=== PATIENT | male | born 1960 | race Caucasian/White ===

== ENCOUNTER 2018-08-03 02:17 | Outpatient (CLI) | payer MEDICARE, OTHER, SELFPAY ==
[2018-08-03 11:22] LABS: ALT 34 U/L (12-78); AST 22 U/L (15-37); Albumin 3.7 g/dL (3.4-5.0); Alkaline Phosphatase 78 U/L (46-116); Anion Gap 7.6 mmol/L (3-11); BUN 17 mg/dL (7-18); Bilirubin, Total 0.3 mg/dL (0.2-1.0); CO2 29.4 mmol/L (21.0-32.0); CREATININE 0.93 mg/dL (0.70-1.30); Calcium 9.4 mg/dL (8.5-10.1); Chloride 104 mmol/L (98-107); Cholesterol 142 mg/dL (50-200); Glucose 89 mg/dL (70-100); HDL Cholesterol 31 mg/dL (40-60); LDL CHOLESTEROL 76 mg/dL (<100); Potassium 4.8 mmol/L (3.5-5.1); Sodium 141 mmol/L (136-145); TSH (W/Ref FT4) 2.62 uIU/mL (0.358-3.74); Total Protein 6.6 g/dL (6.4-8.2); Triglyceride 142 mg/dL (30-150)
[2018-08-05 07:18] LABS: Vitamin D 25 Total 29.6 ng/ml (30-100)
== END 2018-08-03 02:37 ==
PROVIDERS: PCP Nurse Practitioner; Visit Provider Nurse Practitioner
DX: E03.9 Hypothyroidism, unspecified (principal); E78.5 Hyperlipidemia, unspecified; I10 Essential (primary) hypertension; E55.9 Vitamin D deficiency, unspecified
CPT/HCPCS: 36415; 80053; 80061; 82306; 83721; 84443

== ENCOUNTER 2020-05-06 09:41 | Outpatient (REF) | payer MEDICARE, SELFPAY ==
[2020-05-06 14:23] LABS: ALT 35 U/L (16-63); AST 19 U/L (15-37); Albumin 3.9 g/dL (3.4-5.0); Alkaline Phosphatase 59 U/L (46-116); Anion Gap 9.6 mmol/L (3-11); BUN 19 mg/dL (7-18); Bilirubin, Total 0.3 mg/dL (0.2-1.0); CO2 27.4 mmol/L (21.0-32.0); CREATININE 0.9 mg/dL (0.70-1.30); Calcium 9.2 mg/dL (8.5-10.1); Calculated LDL 49 mg/dL (<100); Chloride 107 mmol/L (98-107); Cholesterol 157 mg/dL (<200); Glucose 129 mg/dL (74-106); HDL Cholesterol 37 mg/dL (40-60); Potassium 4.8 mmol/L (3.5-5.1); Sodium 144 mmol/L (136-145); TSH (W/Ref FT4) 2.38 uIU/mL (0.36-3.74); Total Protein 6.7 g/dL (6.4-8.2); Triglyceride 355 mg/dL (<150)
[2020-05-06 14:29] LABS: Vitamin D 25 Total 33.9 ng/ml (30-100)
== END 2020-05-06 09:42 | disposition home or self-care (01) ==
LOC: NCHCN 09:41
PROVIDERS: PCP Nurse Practitioner; Visit Provider Nurse Practitioner
DX: I10 Essential (primary) hypertension (principal); E03.9 Hypothyroidism, unspecified; E78.5 Hyperlipidemia, unspecified; E55.9 Vitamin D deficiency, unspecified
CPT/HCPCS: 80053; 80061; 82306; 84443

== ENCOUNTER 2020-05-21 01:10 | Outpatient (CLI) | payer MEDICARE, SELFPAY ==
--- NOTE | 2020-05-21 | DI.CTLCSR_ITS ---
EXAM: CT CHEST LUNG CANCER SCREEN CLINICAL HISTORY: SCREENING FOR LUNG CA,FORMER SMOKER, Z87.891,ANNUAL TECHNIQUE: Imaging Protocol: Axial computed tomography images with coronal and sagittal reformatted images were created and reviewed COMPARISON: CT CHEST WITHOUT CONTRAST from 03/06/[address] CHEST SCREENING [facility] from 03/10/[address] CHEST SCREENING [facility] from 03/10/2019 FINDINGS: Tracheobronchial tree: Patent where visualized. Mediastinum and Arabella: No dominant adenopathy or fluid collection. Pulmonary parenchyma: No consolidation or dominant measurable mass. No architectural distortion. Tin y bilateral granulomas. Lung Nodules: None. Pleura: No effusion or pneumothorax. Heart: The heart is not dilated. No coronary artery calcifications are seen. Aorta: Thoracic aorta non-dilated. Upper abdomen: Unremarkable. Bones: Endplate osteophytes in the thoracic spine. Old bilateral rib fractures. Soft Tissues: Unremarkable. IMPRESSION: Normal low dose CT lung screening Lung RADS Cat 1 - Negative: No nodules and definitely benign nodules Lung-RA CATEGORIES: Category 0 - Prior chest CT exam(s) being located for comparison. Category 1 - Annual screening in 12 months. No nodules or definitely benign nodules. Category 2 - Annual screening in 12 months. Benign appearance. Nodules with low likelihood of becomin g active cancer. Category 3 - 6-month follow-up. Probably benign. Short-term follow-up suggested. Nodules with low lik elihood of becoming active cancer. Category 4A - 3-month follow-up and CT/PET if >8 mm in size. Suspicious finding. Findings which requi re additional testing. Category 4B - Findings which require additional testing and tissue sampling. Suspicious finding. Category 4X-category 3 or 4 nodules with additional features or imaging findings that increases the s uspicion of malignancy. C Added to Any of the Above - History of prior lung cancer screening. S Added to Any of the Above - Significant unexpected other finding. RADIATION DOSE DELIVERED: 102.88mGy.cm Total DLP 2.21mGy CTDIvol DATA REPOSITORY: All CT scans at this facility are submitted to the National Radiology Data Registry (NRDR) Dose Index Registry (DIR) with the [employer] ([employer]). RADIATION OPTIMIZATION: All CT scans at this facility use at least one of these dose optimization te chniques: automated exposure control; mA and/or kV adjustment per patient size (includes targeted exa ms where dose is matched to clinical indication); or iterative reconstruction.
== END 2020-05-21 01:11 ==
LOC: DI 01:10
PROVIDERS: PCP Nurse Practitioner; Visit Provider Nurse Practitioner
DX: Z12.2 Encounter for screening for malignant neoplasm of respiratory organs (principal); Z87.891 Personal history of nicotine dependence
CPT/HCPCS: 71271

== ENCOUNTER 2020-06-24 00:06 | Outpatient (REF) | payer MEDICARE, SELFPAY ==
[2020-06-24 18:47] LABS: TSH (W/Ref FT4) 1.73 uIU/mL (0.36-3.74)
== END 2020-06-24 00:07 | disposition home or self-care (01) ==
LOC: NCHCN 00:06
PROVIDERS: PCP Nurse Practitioner; Visit Provider Nurse Practitioner
DX: E03.9 Hypothyroidism, unspecified (principal)
CPT/HCPCS: 84443

== ENCOUNTER 2021-09-26 17:49 | Outpatient (REF) | payer MEDICARE, SELFPAY ==
[2021-09-26 18:53] LABS: HCT 38.1 % (40.0-50.0); HGB 13.2 g/dL (13.5-17.5); MCH 32.8 pg (27.0-33.0); MCHC 34.6 % (32.0-36.0); MCV 95 fL (80-95); MPV 10.9 fL (8.0-11.0); Platelet Count 237 10^3/uL (130-400); RBC 4.02 10^6/uL (4.36-5.78); RDW-SD 45.4 fL
[2021-09-26 19:39] LABS: Anion Gap 8.7 mmol/L (3-11); BUN 18 mg/dL (7-18); CO2 25.3 mmol/L (21.0-32.0); CREATININE 0.9 mg/dL (0.70-1.30); Calcium 9.1 mg/dL (8.5-10.1); Chloride 104 mmol/L (98-107); Glucose 98 mg/dL (74-106); Potassium 4.2 mmol/L (3.5-5.1); Sodium 138 mmol/L (136-145); TSH 0.99 uIU/mL (0.36-3.74)
== END 2021-09-26 17:50 | disposition home or self-care (01) ==
LOC: NCHCN 17:49
PROVIDERS: PCP Nurse Practitioner; Visit Provider Nurse Practitioner Family
DX: E03.9 Hypothyroidism, unspecified (principal); I10 Essential (primary) hypertension; E78.5 Hyperlipidemia, unspecified; E55.9 Vitamin D deficiency, unspecified; F31.70 Bipolar disorder, currently in remission, most recent episode unspecified; J44.9 Chronic obstructive pulmonary disease, unspecified
CPT/HCPCS: 80048; 85027; 84443

== ENCOUNTER 2021-12-28 14:51 | Outpatient (REF) | payer MEDICARE, SELFPAY ==
[2021-12-28 20:35] LABS: VALPROIC ACID 84.6 ug/mL
== END 2021-12-28 14:52 | disposition home or self-care (01) ==
LOC: NCHCN 14:51
PROVIDERS: PCP Nurse Practitioner; Visit Provider Nurse Practitioner Psychiatric/Mental Health
DX: Z51.81 Encounter for therapeutic drug level monitoring (principal)
CPT/HCPCS: 80164

== ENCOUNTER 2022-05-04 16:17 | Outpatient (REF) | payer MEDICARE, SELFPAY ==
[2022-05-04 15:17] LABS: Absolute Basophil Count 0.02 10^3/uL (0.0-0.2); Absolute Lymphocyte Count 2.25 10^3/uL (1.2-3.4); Absolute Monocyte Count 0.47 10^3/uL (0.1-0.8); Absolute Neutrophil Count 2.44 10^3/uL (1.2-6.7); Basophils % 0.4; Eosinophils % 1.9; HCT 40.2 % (40.0-50.0); HGB 13.3 g/dL (13.5-17.5); Lymphocytes % 42.6; MCH 32.3 pg (27.0-33.0); MCHC 33.1 % (32.0-36.0); MCV 98 fL (80-95); MPV 11.4 fL (8.0-11.0); Monocytes % 8.9; Neutrophils % 46.2; Platelet Count 214 10^3/uL (130-400); RBC 4.12 10^6/uL (4.36-5.78); RDW 12.2 % (11.8-14.1); RDW-SD 43.8 fL; WBC 5.28 10^3/uL (4.4-10.8)
[2022-05-04 15:52] LABS: VALPROIC ACID 62.4 ug/mL
[2022-05-04 16:00] LABS: Vitamin D 25 Total 37.2 ng/mL (30-100)
[2022-05-04 16:05] LABS: ALT 25 U/L (16-63); AST 20 U/L (15-37); Albumin 4.1 g/dL (3.4-5.0); Alkaline Phosphatase 54 U/L (46-116); Anion Gap 6.5 mmol/L (3-11); BUN 18 mg/dL (7-18); Bilirubin, Total 0.4 mg/dL (0.2-1.0); CO2 29.5 mmol/L (21.0-32.0); CREATININE 0.8 mg/dL (0.70-1.30); Calcium 9.3 mg/dL (8.5-10.1); Calculated LDL 84 mg/dL (<100); Chloride 104 mmol/L (98-107); Cholesterol 162 mg/dL (<200); Estimated GFR 99.44 (mL/min/1.73m2); Ferritin 289 ng/mL (26-388); Glucose 111 mg/dL (74-106); HDL Cholesterol 45 mg/dL (40-60); Potassium 4.7 mmol/L (3.5-5.1); Sodium 140 mmol/L (136-145); Total Protein 6.9 g/dL (6.4-8.2); Triglyceride 169 mg/dL (<150); Vitamin B12 591 pg/mL (193-986)
== END 2022-05-04 16:18 | disposition home or self-care (01) ==
LOC: NCHCN 16:17
PROVIDERS: PCP Nurse Practitioner; Visit Provider Nurse Practitioner Family
DX: I10 Essential (primary) hypertension (principal); E55.9 Vitamin D deficiency, unspecified; E03.9 Hypothyroidism, unspecified; F31.70 Bipolar disorder, currently in remission, most recent episode unspecified; J44.9 Chronic obstructive pulmonary disease, unspecified; G47.33 Obstructive sleep apnea (adult) (pediatric); F17.201 Nicotine dependence, unspecified, in remission
CPT/HCPCS: 80053; 80061; 82306; 80164; 82607; 82728; 84443; 85025

== ENCOUNTER 2023-04-30 15:50 | Outpatient (CLI) | payer MEDICARE, SELFPAY ==
[2023-04-30 15:43] LABS: HCT 40.5 % (40.0-50.0); HGB 13.9 g/dL (13.5-17.5); MCH 32.3 pg (27.0-33.0); MCHC 34.3 % (32.0-36.0); MCV 94 fL (80-95); MPV 10.8 fL (8.0-11.0); Platelet Count 213 10^3/uL (130-400); WBC 5.68 10^3/uL (4.4-10.8)
[2023-04-30 16:42] LABS: VALPROIC ACID 73.4 ug/mL
[2023-04-30 16:53] LABS: ALT 33 U/L (16-63); AST 18 U/L (15-37); Albumin 3.9 g/dL (3.4-5.0); Alkaline Phosphatase 57 U/L (46-116); Anion Gap 8.2 mmol/L (3-11); BUN 12 mg/dL (7-18); CO2 28.8 mmol/L (21.0-32.0); CREATININE 0.8 mg/dL (0.70-1.30); Calcium 9.3 mg/dL (8.5-10.1); Calculated LDL 75 mg/dL (<100); Chloride 106 mmol/L (98-107); Cholesterol 154 mg/dL (<200); Estimated GFR 98.83 (mL/min/1.73m2); Glucose 118 mg/dL (74-106); HDL Cholesterol 43 mg/dL (40-60); Potassium 4.5 mmol/L (3.5-5.1); Sodium 143 mmol/L (136-145); Total Protein 7.2 g/dL (6.4-8.2); Triglyceride 184 mg/dL (<150)
[2023-04-30 17:07] LABS: Vitamin D 25 Total 30.9 ng/mL (30-100)
[2023-04-30 17:34] LABS: Bilirubin, Total 0.3 mg/dL (0.2-1.0)
== END 2023-04-30 15:51 | disposition home or self-care (01) ==
LOC: LBO 15:51
PROVIDERS: PCP Nurse Practitioner Family; Visit Provider Nurse Practitioner Family
DX: E78.5 Hyperlipidemia, unspecified (principal); Z79.899 Other long term (current) drug therapy
CPT/HCPCS: 36415; 80053; 80061; 82306; 85027; 80164

== ENCOUNTER 2023-11-30 17:09 | Outpatient (CLI) | payer MEDICARE, SELFPAY ==
--- NOTE | 2023-11-30 15:25 | DI.RAD_ITS ---
Exam(s) XR KNEE LT 3V AP,LAT,DORIAN EXAM: XR KNEE LT 3V AP,LAT,DORIAN CLINICAL HISTORY: M25.562 Pain in left knee. TECHNIQUE: 2D digital imaging was performed. Three views. COMPARISON: No exams were available for comparison FINDINGS: BONES: No acute fracture is present. No bony destructive lesion is seen. Enthesophyte at upper lucina e patella. JOINTS: The knee is normally aligned. No joint effusion is seen. Joint spaces are maintained. Mini mal periarticular spurring. SOFT TISSUE: Normal. IMPRESSION: Mild degenerative changes. DATA REPOSITORY: RADIATION DOSE DELIVERED:
== END 2023-11-30 17:29 ==
LOC: DI 17:09
PROVIDERS: PCP Nurse Practitioner Family; Visit Provider Physician Assistant
DX: M25.562 Pain in left knee (principal)
CPT/HCPCS: 73562

== ENCOUNTER 2024-01-22 11:18 | Outpatient (CLI) | payer MEDICARE, SELFPAY ==
[2024-01-22 11:31] LABS: Hemoglobin A1C 6.2 % (<5.7)
[2024-01-22 11:42] LABS: ALT 30 U/L (16-63); AST 14 U/L (15-37); Albumin 3.6 g/dL (3.4-5.0); Alkaline Phosphatase 76 U/L (46-116); Anion Gap 8.4 mmol/L (3-11); BUN 13 mg/dL (7-18); Bilirubin, Total 0.34 mg/dL (0.2-1.0); CO2 27.6 mmol/L (21.0-32.0); CREATININE 0.9 mg/dL (0.70-1.30); Calcium 9.4 mg/dL (8.5-10.1); Chloride 108 mmol/L (98-107); Estimated GFR 94.78 (mL/min/1.73m2); Glucose 161 mg/dL (74-106); Potassium 3.8 mmol/L (3.5-5.1); Sodium 144 mmol/L (136-145); Total Protein 6.8 g/dL (6.4-8.2)
[2024-01-22 11:56] LABS: VALPROIC ACID 25.2 ug/mL
== END 2024-01-22 11:19 ==
LOC: LBO 11:18
PROVIDERS: PCP Nurse Practitioner Family; Visit Provider Nurse Practitioner Psychiatric/Mental Health
DX: F31.70 Bipolar disorder, currently in remission, most recent episode unspecified (principal); M25.562 Pain in left knee
CPT/HCPCS: 36415; 80053; 80164; 83036

== ENCOUNTER 2024-04-23 11:13 | Outpatient (REF) | payer MEDICARE, SELFPAY ==
[2024-04-23 16:33] LABS: Anion Gap 10.7 mmol/L (3-11); BUN 12 mg/dL (7-18); CO2 27.3 mmol/L (21.0-32.0); CREATININE 1.1 mg/dL (0.70-1.30); Calcium 9.2 mg/dL (8.5-10.1); Chloride 109 mmol/L (98-107); Glucose 142 mg/dL (74-106); Potassium 4.1 mmol/L (3.5-5.1); Sodium 147 mmol/L (136-145)
[2024-04-23 16:42] LABS: Hemoglobin A1C 5.7 % (<5.7)
== END 2024-04-23 11:14 | disposition home or self-care (01) ==
LOC: NCHCN 11:13
PROVIDERS: PCP Nurse Practitioner Family; Visit Provider Nurse Practitioner Family
DX: R73.03 Prediabetes (principal); I10 Essential (primary) hypertension
CPT/HCPCS: 80048; 83036

== ENCOUNTER 2024-05-09 16:17 | Emergency (ER) | payer MEDICARE, SELFPAY ==
[2024-05-09 16:31] VITALS: BP 160/60; PULSE 86; RESP 20; TEMP 36.6; O2SAT 93
--- NOTE | 2024-05-09 16:47 | W.ED.GENAD ---
Discharge Plan Disposition Patient Disposition: Home Discharge Details Clinical Impression: Acute exacerbation of chronic obstructive pulmonary disease (COPD), Influenza A Primary Care Provider: PRINCE BURNETT ED Provider: Lester Garza [place] Meds and New Rx's Prescriptions: New doxycycline hyclate 100 mg capsule 100 mg PO BID Qty: 10 0RF prednisone 50 mg tablet 50 mg PO DAILY Qty: 4 0RF Rx Instructions: Please begin taking tomorrow as you have received steroids in the emergency department Continued doxepin 50 mg capsule 50 mg PO .COMPLEX Qty: 60 1RF Rx Instructions: 50 mg PO 1-2 @HS; rosuvastatin 20 mg tablet 20 mg PO DAILY tadalafil [Cialis] 5 mg tablet 5 mg PO DAILY benazepril 5 MG tablet 10 mg PO DAILY divalproex [Depakote] 500 MG tablet,delayed release (DR/EC) 500 mg PO HS bupropion HCl (smoking deter) 150 mg tablet extended release 12 hr 150 mg PO BID Patient Comments: TAKE ONE TABLET BY MOUTH TWICE A DAY DIRECTED FOR SMOKING CESSATION propranolol 10 mg tablet 10 mg PO BID Patient Comments: TAKE TWO TABLETS BY MOUTH TWICE A DAY DIRECTED acetaminophen [Mapap Extra Strength] 500 MG tablet 1,000 mg PO Q8H PRN0RF albuterol sulfate [ProAir HFA] 200 PUFF HFA aerosol inhaler 2 puff Inhalation Q4H PRNQty: 0 0RF Discharge Instructions Instructions: COPD Exacerbation, Adult ED Additional Instructions: You were seen in the emergency department for your cough and shortness of breath. Your x-ray showed no sign of pneumonia. You are found to have influenza which likely caused your COPD to flareup. You likely have a exacerbation of your reactive airway disease for which you are receiving steroids and antibiotics. Please return to the emergency department if you pass out develop fevers or cannot eat or drink. HPI General Date/Time Provider Initiated Documentation: 05/09/24 16:25. HPI Narrative: MDM This is an overall very well-appearing mildly wheezy but not hypoxic 63-year-old male influenza positive for which he will receive treatment with doxycycline and prednisone. No bacterial pneumonia to suggest coverage with amoxicillin as my suspicion was low for strep pneumoniae. Not tachycardic nor hypoxic and given influenza positive I did not feel the patient had a PE so I did not send a D-dimer. Given duration of time since symptoms began no indication for oseltamavir. Patient is breathing well so no indication for nebulization treatment. No pain out of proportion to suggest necrotizing soft tissue infection. Chest x-ray with no infiltrate. No chest pain to suggest ACS I did not obtain troponin. No trauma and equal breath sounds so doubt pneumothorax. No dysuria or frequency to suggest UTI. Patient is a daily smoker. He lives alone. If any fevers to suggest sepsis and his vital signs were not consistent. We discussed that if he felt worse he should return to the emergency department. We also discussed that he should return if he passed out or develop chest pain. He understood his return indications and was discharged with empiric trial of expectant outpatient management. HPI This is a 63-year-old male history of tobacco use and COPD right emergency department via private vehicle in the setting of cough for the past 6 days. Patient has had increased fatigue when ambulating. He denies chest pain. He has not any fevers. He reports that he has been eating and drinking well. Denies nausea or vomiting. No recent falls. Exam General: Well-appearing in no acute distress speaking in complete sentences. Head: Normocephalic, atraumatic. Eye: Extraocular eye movements intact. No conjunctival injection. No scleral icterus. Ear, nose, mouth, throat: Grossly normal inspection. Normal voice, handling secretions normally. Neck: Trachea midline. Cardiovascular: Well-perfused distal extremities. Respiratory: Nonlabored respiration. Diffuse wheezes. No stridor. No respiratory distress. No accessory muscle use. Gastrointestinal: Nondistended abdomen. Musculoskeletal: No edema. Moving all 4 extremities spontaneously. Skin: Normal for age and race, grossly normal temperature and turgor. No acute rash. Neurologic: Alert and appropriate, no apparent acute deficits. Psychiatric: Mood and manner are appropriate. Grooming and personal hygiene are appropriate. Related Data Home Medications ?Medication ?Instructions ?Recorded ?Confirmed benazepril 5 mg tablet 10 mg PO DAILY 09/24/13 05/09/24 acetaminophen 500 mg tablet (Mapap 1,000 mg (2 x 500 mg) PO Q8H PRN 12/27/16 05/09/24 Extra Strength) albuterol sulfate 90 mcg/actuation 2 puff inhalation Q4H PRN ##0 12/27/16 05/09/24 aerosol inhaler (ProAir HFA) doxepin 50 mg capsule 50 mg PO .COMPLEX #60 tab-caps 09/02/18 05/09/24 rosuvastatin 20 mg tablet 20 mg PO DAILY 04/18/22 05/09/24 tadalafil 5 mg tablet (Cialis) 5 mg PO DAILY 04/18/22 05/09/24 bupropion HCl (smoking deter) 150 150 mg PO BID 05/09/24 05/09/24 mg tablet,12 hr sustained-release(smoking deterrent) divalproex 500 mg tablet,delayed 500 mg PO HS 05/09/24 05/09/24 release (Depakote) doxycycline hyclate 100 mg capsule 100 mg PO BID #10 caps 05/09/24 prednisone 50 mg tablet 50 mg PO DAILY #4 tabs 05/09/24 propranolol 10 mg tablet 10 mg PO BID 05/09/24 05/09/24 Previous Rx's ?Medication ?Instructions ?Recorded acetaminophen 500 mg tablet (Mapap 1,000 mg (2 x 500 mg) PO Q8H PRN 12/27/16 Extra Strength) albuterol sulfate 90 mcg/actuation 2 puff inhalation Q4H PRN ##0 12/27/16 aerosol inhaler (ProAir HFA) doxepin 50 mg capsule 50 mg PO .COMPLEX #60 tab-caps 09/02/18 doxycycline hyclate 100 mg capsule 100 mg PO BID #10 caps 05/09/24 prednisone 50 mg tablet 50 mg PO DAILY #4 tabs 05/09/24 Allergies Allergy/AdvReac Type Severity Reaction Status Date / Time No Known Allergies Allergy Unverified 05/09/24 16:37 General Stated Complaint: RespSymp MIGUELINA: 3 Course Vital Signs Vital signs: Vital Signs Temperature 36.6 C 05/09/24 16:31 Pulse 86 05/09/24 16:31 Respiratory Rate 20 05/09/24 16:31 Blood Pressure 160/60 H 05/09/24 16:31 Pulse Oximetry 93 05/09/24 16:31 Temperature 36.6 C 05/09/24 16:31 Pulse 86 05/09/24 16:31 Respiratory Rate 20 05/09/24 16:31 Blood Pressure 160/60 H 05/09/24 16:31 Pulse Oximetry 93 05/09/24 16:31 Oxygen Delivery Method Room Air 05/09/24 16:31 Oxygen Flow Rate 0 05/09/24 16:31 Medical Decision Making Quality:SDOH Health Related Social Needs: No Data to Display PFSH All Active Problems (Updated 05/09/24 @ 17:47 by Lester Garza MD) Influenza A (Acute) Acute exacerbation of chronic obstructive pulmonary disease (COPD) (Acute) MANJEET (obstructive sleep apnea) (Chronic) Vitamin D deficiency (Acute) Screening for colon cancer (Acute) Traumatic hematoma of left hand (Acute) Swelling of left side of face (Acute) Bipolar 1 disorder (Acute) Ribs, multiple fractures (Acute) disposition (Acute) ETOH abuse (Acute) Osteoarthritis of left knee (Acute) Medical History (Updated 05/09/24 @ 17:47 by Lester Garza MD) Erectile dysfunction Tobacco dependence in remission Pneumonia Hypertension Ribs, multiple fractures COPD (chronic obstructive pulmonary disease) Bipolar 1 disorder Hypothyroidism Hyperlipidemia Neoplasm of skin Sensory hearing loss Surgical History (Updated 04/18/22 @ 09:24 by Lucía Lujan RN) H/O total hip arthroplasty Colonoscopy - IV Sedation 2013 Social History Smoking/Tobacco Use Status: Current every day Tobacco Type: cigarettes Smoking risk assessment performed?: Yes Alcohol Intake: current Alcohol Intake frequency: a few times a week Drug use: Occasionally Substance use type: marijuana Do you feel safe in your relationship?: No
--- NOTE | 2024-05-09 16:54 | DI.RAD_ITS ---
Exam(s) XR CHEST 2V PA LATERAL EXAM: XR CHEST 2V PA LATERAL CLINICAL HISTORY: Cough TECHNIQUE: 2D digital imaging was performed of the chest. Two images were obtained. PA and lateral views were obtained. COMPARISON: CR LEFT RIBS TO INCLUDE CXR from 02/05/2016 FINDINGS: The costophrenic angles were not included on this examination. MEDIASTINUM: Normal. HEART: Normal. PULMONARY VASCULATURE: Normal. LUNGS: The lungs are hyperinflated with flattened diaphragms suggesting underlying COPD. The lungs a re clear. PLEURAL SPACE: No pleural effusion or pneumothorax. BONE:Within normal limits for the patient's age. There are old healed left rib fractures. OTHER FINDINGS:Normal. IMPRESSION: No acute pulmonary findings. DATA REPOSITORY: RADIATION DOSE DELIVERED:
[2024-05-09 17:48] LABS: COVID-19 PCR Negative (Negative); Influenza A PCR Positive (Negative); Influenza B PCR Negative (Negative); RSV PCR Negative (Negative); Source Nasopharynx
[2024-05-09] MEDS: Doxycycline Hyclate 100 MG CAP PO (17:48)
[2024-05-09] MEDS: predniSONE 20 MG TAB 60 MG PO (17:48)
[2024-05-09 17:53] VITALS: BP 155/83; PULSE 81; RESP 20; O2SAT 94
== END 2024-05-09 18:00 | disposition home or self-care (01) ==
PROVIDERS: Student in an Organized Health Care Education/Training Program; Emergency Provider Emergency Medicine; PCP Nurse Practitioner Family
DX: J09.X2 Influenza due to identified novel influenza A virus with other respiratory manifestations (principal); J44.1 Chronic obstructive pulmonary disease with (acute) exacerbation
CPT/HCPCS: 87637; 99284; 71046; 99283; J7512

== ENCOUNTER 2024-12-03 15:21 | Outpatient (REF) | payer MEDICARE, SELFPAY | END 2024-12-03 15:22 | disposition home or self-care (01) | LOC: NCHCN 15:21 | PROVIDERS: PCP Nurse Practitioner Family; Visit Provider Nurse Practitioner Psychiatric/Mental Health | DX: Z51.81 Encounter for therapeutic drug level monitoring (principal) | CPT/HCPCS: 80164 ==

== ENCOUNTER 2025-02-12 02:08 | Outpatient (CLI) | payer MEDICARE, SELFPAY ==
[2025-02-12 11:10] LABS: HCT 40.6 % (40.0-50.0); HGB 13.3 g/dL (13.5-17.5); MCH 31.2 pg (27.0-33.0); MCHC 32.8 % (32.0-36.0); MCV 95 fL (80-95); MPV 10.3 fL (8.0-11.0); Platelet Count 166 10^3/uL (130-400); RBC 4.26 10^6/uL (4.36-5.78); RDW 12.9 % (11.8-14.1); RDW-SD 44.7 fL; WBC 8.42 10^3/uL (4.4-10.8)
[2025-02-12 15:41] LABS: Hemoglobin A1C 6.1 % (<5.7)
[2025-02-12 16:45] LABS: ALT 230 U/L (10-49); AST 210 U/L (<34); Albumin 3.6 g/dL (3.4-5.0); Alkaline Phosphatase 120 U/L (46-116); Anion Gap 8.6 mmol/L (3-11); BUN 8 mg/dL (9-23); Bilirubin, Total 0.50 mg/dL (0.2-1.2); CO2 29.4 mmol/L (20.0-31.0); Calcium 8.9 mg/dL (8.3-10.6); Chloride 104 mmol/L (98-107); Cholesterol 110 mg/dL (<200); Glucose 108 mg/dL (74-106); HDL Cholesterol 10 mg/dL (>40); Potassium 3.9 mmol/L (3.5-5.1); Sodium 142 mmol/L (136-145); Total Protein 6.6 g/dL (5.7-8.2)
== END 2025-02-12 02:09 | disposition home or self-care (01) ==
LOC: LBO 02:08
PROVIDERS: PCP Nurse Practitioner Family; Visit Provider Nurse Practitioner Family
DX: Z00.00 Encounter for general adult medical examination without abnormal findings (principal); Z86.2 Personal history of diseases of the blood and blood-forming organs and certain disorders involving the immune mechanism; E78.5 Hyperlipidemia, unspecified; Z79.899 Other long term (current) drug therapy
CPT/HCPCS: 36415; 80053; 80061; 85027; 80164; 83036

== ENCOUNTER 2025-02-24 10:07 | Outpatient (REF) | payer MEDICARE, SELFPAY ==
[2025-02-24 16:16] LABS: HCT 37.3 % (40.0-50.0); HGB 12.0 g/dL (13.5-17.5); MCH 32.1 pg (27.0-33.0); MCHC 32.2 % (32.0-36.0); MCV 100 fL (80-95); MPV 11.1 fL (8.0-11.0); Platelet Count 119 10^3/uL (130-400); RBC 3.74 10^6/uL (4.36-5.78); RDW 14.7 % (11.8-14.1); RDW-SD 52.5 fL; WBC 9.18 10^3/uL (4.4-10.8)
[2025-02-24 16:30] LABS: ALT 62 U/L (10-49); AST 72 U/L (<34); Albumin 3.0 g/dL (3.2-5.0); Alkaline Phosphatase 158 U/L (46-116); Anion Gap 9.5 mmol/L (3-11); BUN 12 mg/dL (9-23); Bilirubin, Total 0.40 mg/dL (0.2-1.2); CO2 23.5 mmol/L (20.0-31.0); Calcium 8.4 mg/dL (8.3-10.6); Chloride 109 mmol/L (98-107); Glucose 113 mg/dL (74-106); Potassium 4.5 mmol/L (3.5-5.1); Sodium 142 mmol/L (136-145); Total Protein 6.1 g/dL (5.7-8.2)
[2025-02-24 16:43] LABS: Abs Immature Grans 0.00 10^3/uL (0.0-0.06); Immature Grans % 0.0 %; RBC Morphology Normal
[2025-02-25 09:44] LABS: Hepatitis C Ab w Rflx HCV PCR Negative (Negative)
[2025-02-25 11:13] LABS: Syphilis Serology (RPR) Negative (Negative)
== END 2025-02-24 10:08 | disposition home or self-care (01) ==
LOC: NCHCN 10:07
PROVIDERS: PCP Nurse Practitioner Family; Visit Provider Nurse Practitioner Family
DX: R79.89 Other specified abnormal findings of blood chemistry (principal); Z11.59 Encounter for screening for other viral diseases; K52.9 Noninfective gastroenteritis and colitis, unspecified
CPT/HCPCS: 80053; 86803; 87536; 85025; 86592